=== PATIENT | male | born 1995 | race Caucasian/White ===

== ENCOUNTER 2017-08-15 12:54 | Emergency (ER) | payer BC, OTHER ==
[~2017-08-15] VITALS: Ht 182.9 cm; Wt 68.0 kg
[~2017-08-15 12:54] MED LIST: BACT800T5 PO; CYCL5TAB PO; IBUP1TAB7 PO
[2017-08-15 12:55] VITALS: BP 117/80; PULSE 91; RESP 12; TEMP 98.1; O2SAT 99
--- NOTE | 2017-08-15 13:16 | PD ---
HPI Chief Complaint: Complaint Time Seen by Provider: 13:06 Travel History International Travel<30 days: No Contact w/Intl Traveler<30days: No Traveled to known affect area: No History of Present Illness HPI This patient complains of right testicle pain. Started yesterday. Duration one day. He went to [facility] emergency room and they felt he needed an ultrasound of his testicle and sent him here for that reason. Symptoms severity is Mild. No alleviating factors. No exacerbating factors. There was no injury or fever or penile discharge. PFSH Past Medical History Medical History: Denies Significant Hx Influenza Vaccination: No Past Surgical History Surgical History: No Previous Surgery Social History Alcohol Use: Yes (occasionally) Tobacco Use: No Substance Use: No Allergies-Medications (Allergen,Severity, Reaction): Coded Allergies: No Known Allergies (Unverified , 08/15/17) Reported Meds & Prescriptions Reported Meds & Active Scripts Active Tramadol (Tramadol HCl) 50 Mg Tab 50 Mg PO Q6H PRN Reported Bactrim DS (Sulfamethoxazole-Trimethoprim) 800-160 Mg Tab 1 Tab PO BID Review of Systems General / Constitutional: No: Fever Eyes: No: Visual changes HENT: No: Headaches Cardiovascular: No: Chest Pain or Discomfort Respiratory: No: Shortness of Breath Gastrointestinal: No: Abdominal Pain Genitourinary: No: Dysuria Musculoskeletal: No: Pain Skin: No Rash Neurologic: No: Weakness Psychiatric: No: Depression Endocrine: No: Polydipsia Hematologic/Lymphatic: No: Easy Bruising Physical Exam Narrative GENERAL: Well-nourished, well-developed patient in no apparent distress. SKIN: Focused skin assessment reveals no rash and nodules. Skin is Warm and dry. HEAD: Atraumatic. Normocephalic. EYES: Pupils equal and round. No scleral icterus. No injection or drainage. ENT: No nasal bleeding or discharge. Mucous membranes pink and moist. NECK: Trachea midline. No JVD. CARDIOVASCULAR: Regular rate and rhythm. No murmur appreciated. RESPIRATORY: No accessory muscle use. Clear to auscultation. Breath sounds equal bilaterally. GASTROINTESTINAL: Abdomen soft, non-tender, nondistended. Hepatic and splenic margins not palpable. MUSCULOSKELETAL: No obvious deformities. No clubbing. No cyanosis. No edema. NEUROLOGICAL: Awake and alert. No obvious cranial nerve deficits. Motor grossly within normal limits. Normal speech. PSYCHIATRIC: Appropriate mood and affect; insight and judgment normal. : No penile lesions. Circumcised. There is some mild right testicular tenderness. None on the left. No obvious swelling of the scrotum or erythema or warmth. Data Data Last Documented VS Vital Signs Date Time Temp Pulse Resp B/P (MAP) Pulse Ox O2 Delivery O2 Flow Rate FiO2 08/15/17 12:55 98.1 91 12 117/80 (92) 99 Orders Orders Us Testicles W Doppler (08/15/17 ) Ed Discharge Order (08/15/17 15:45) MDM Medical Decision Making Medical Screen Exam Complete: Yes Emergency Medical Condition: Yes Medical Record Reviewed: Yes Differential Diagnosis Torsion, varicocele, epididymitis Narrative Course I have reviewed the patient's electronic medical record. Ultrasound of his testicles is reviewed. Left side is normal. Right side shows small hydrocele and small varicocele and small benign-appearing nodule. I reviewed this all with patient and parents. I gave them a copy of the report to review with her physician. Some pain medicine written. No torsion Diagnosis Primary Impression: Testicular pain, right Additional Impression: Right varicocele Additional Instructions: The patient was warned about potential sedation for the medications they will receive on prescription. Follow up with urologist or primary physician Med/Other Pt SpecificInfo: Prescription(s) given Scripts Tramadol (Tramadol) 50 Mg Tab 50 MG PO Q6H Y for PAIN, #14 TAB 0 Refills Prov: Judah Pugh MD 08/15/17 Disposition: 01 DISCHARGE HOME Condition: Stable Judah Pugh MD Aug 15, 2017 13:16
--- NOTE | 2017-08-15 14:28 | RADRPT ---
EXAM DATE/TIME: 08/15/2017 13:44 [facility] COMPARISON: No previous studies available for comparison. INDICATIONS : Right testicular pain. MEDICAL HISTORY : Right testicular pain. SURGICAL HISTORY : None. ENCOUNTER: Initial ACUITY: 1 week PAIN SCORE: 7/10 LOCATION: Bilateral scrotum. MEASUREMENTS: RIGHT TESTICLE: 3.0 x 4.4 x 2.5cm LEFT TESTICLE: 3.0 x 4.2 x 2.4 cm FINDINGS: RIGHT TESTICLE: Homogeneous echotexture without intratesticular mass. However, there is a well-circumscribed, slight ly hyperechoic 0.6 x 0.5 x 0.6 cm nodule (when compared to the adjacent epididymis) lateral to the ri ght testicle and adjacent to the epididymal head. Blood flow is symmetric and within normal limits. V barbie small right-sided varicocele. Small 3 mm epididymal cyst. Small right-sided hydrocele. LEFT TESTICLE: Homogeneous echotexture without intra or extratesticular mass. Blood flow is symmetric and within no rmal limits. No hydrocele or varicocele. Small 5 mm epididymal cyst. SCROTUM: Within normal limits. CONCLUSION: 1. Both testicles are sonographically normal with preserved blood flow. 2. Small right-sided hydrocele with a very small varicocele. 3. 6 x 5 x 6 mm well-circumscribed nodule lateral to the right testicle and adjacent to the epididyma l head. 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 4. Small bilateral epididymal cysts. Left testicle and hemiscrotum are sonographically normal. Dustin Srinivasan MD on August 15, 2017 at 14:16 Board Certified Radiologist. This report was verified electronically.
[2017-08-15] MEDS ORDERED: TRAM50TA PO (15:44)
== END 2017-08-15 16:04 | disposition home or self-care (01) ==
LOC: NEPD 12:54
DX: I86.1 Scrotal varices (principal); N43.3 Hydrocele, unspecified; Z79.899 Other long term (current) drug therapy
CPT/HCPCS: 76870; 81001; 93975; 99283; 99284